=== PATIENT | female | born 1990 | race Caucasian/White ===

== ENCOUNTER 2020-10-21 16:43 | Emergency (ER) | payer MEDICAID ==
[~2020-10-21] VITALS: Ht 165.1 cm; Wt 95.5 kg
[2020-10-21 17:08] VITALS: BP 148/99
--- NOTE | 2020-10-21 20:19 | NUR ---
PT AMBULATED TO BED 1
--- NOTE | 2020-10-21 20:20 | NUR ---
PT. IS A 30 Y/O FEMALE THAT CAME INTO ED WITH C/O OF HIGH BLOOD PRESSURE. PT. STATES IT STARTED THIS MORNING AT 8AM. PT. STATES TODAY SHE FELT "NUMBNESS ON BOTH ARMS AND LEGS AND IT COMES AND GOES." PT. STATES THAT HER BLOOD PRESSURE INCREASED, BUT WHEN ASKED TO RATE PAIN, PT. STATES 0/10 PAIN ON THE PAIN SCALE AT THIS TIME. UPON ASSESSMENT, PT. CURRENT BP AT 132/90. DENIES V/D, BUT STATES THAT SHE FELT NAUSEATED TODAY. SKIN IS PINK/WARM/DRY; AAOX4 WITH EVEN AND STEADY GAIT; HR EVEN AND REGULAR; PT DENIES ANY FEVER, CP, SOB, OR COUGH AT THIS TIME;VSS; PATIENT POSITIONED FOR COMFORT; HOB ELEVATED; BEDRAILS UP X1; BED DOWN. ER MD MADE AWARE OF PT STATUS. MED HX: HTN ALLERGIES: NKA
--- NOTE | 2020-10-21 20:34 | NUR ---
[facility] AT BEDSIDE FOR MEDICAL EVALUATION.
--- NOTE | 2020-10-21 20:49 | NUR ---
LAB AT BEDSIDE
--- NOTE | 2020-10-21 20:50 | NUR ---
EKG AT BEDSIDE
[2020-10-21 21:01] LABS: BASOPHILS % (AUTO) 0.3 % (0.0-2.0); EOSINOPHILS % (AUTO) 0.1 % (0.0-4.0); HEMATOCRIT 40.6 % (36-48); HEMOGLOBIN 13.6 g/dL (12.0-16.0); LYMPHOCYTES # (AUTO) 2.3 K/uL (2.5-16.5); LYMPHOCYTES % (AUTO) 22.1 % (20.5-51.1); MEAN CORPUSCULAR HEMOGLOBIN 33 pg (27-31); MEAN CORPUSCULAR HGB CONC 34 g/dL (33-37); MEAN CORPUSCULAR VOLUME 97.6 fL (80-94); MONOCYTES % (AUTO) 9.4 % (1.7-9.3); NEUTROPHILS # (AUTO) 7.1 K/uL (1.8-7.7); NEUTROPHILS % (AUTO) 68.1 % (42.2-75.2); PLATELET COUNT (AUTO) 316 K/uL (140-450); RED BLOOD CELL COUNT(AUTO) 4.16 MIL/uL (4.20-5.40); RED CELL DISTRIBUTION WIDTH 12.9 % (11.6-13.7); WHITE BLOOD COUNT (AUTO) 10.5 K/uL (4.8-10.8)
--- NOTE | 2020-10-21 21:20 | NUR ---
PT. LAYING SUPINE POSITION, VOICES NO COMPLAINTS. WILL CONTINUE TO MONITOR
[2020-10-21 21:28] LABS: ANION GAP 12.4 (8-16); CARBON DIOXIDE 27.9 mmol/L (21-32); CREATININE 0.9 mg/dL (0.6-1.3); FREE T4 (FREE THYROXINE) 0.76 ng/dL (0.76-1.46); POTASSIUM 4.3 mmol/L (3.5-5.1); THYROID STIMULATING HORMONE 0.81 uIU/mL (0.34-3.74); TOTAL BILIRUBIN 0.7 mg/dL (0.0-1.0)
[2020-10-21] MEDS ORDERED: LORA-476 PO (21:57)
[2020-10-21 22:08] VITALS: BP 132/90
== END 2020-10-21 22:08 | disposition home or self-care (01) ==
LOC: MED 16:43
DX: F41.9 Anxiety disorder, unspecified (principal); R00.2 Palpitations; I10 Essential (primary) hypertension; Z79.899 Other long term (current) drug therapy
CPT/HCPCS: 36415; 80053; 84439; 84443; 84484; 84703; 85025; 93005; 99284